=== PATIENT | female | born 1990 | race African-American/Black ===

== ENCOUNTER 2017-04-16 20:28 | Outpatient (CLI) | payer OTHER ==
--- NOTE | 2017-04-16 22:06 | IPNPDOC ---
Text Note Date of Service The patient was seen on 04/16/17. NOTE Nash Ryan is a 26yo with SIUP at approx 22 wk presenting to L&D with abdominal cramping for 1 day. She reports she recently moved here from [facility] , they are in their new home but still unpacking. She denies recent intercourse , trying to stay hydrated. Has been moving heavy boxes and unpacking. No LOF, no vaginal bleeding. Feels good movement. Denies pain with urination or vaginal pain/itching/abnormal discharge. PMhx: obesity Ob hx: was 37wk IOL for pre-E that resulted in arrest of dilation with section This has been uncomplicated, normal anatomy scan at 20wk Vitals wnl General: WDWN female in NAD, resting comfortably Abdomen: soft, NT, ND, gravid SSE with RN as air route controller: NEFG, cervix visually thick and closed, thick white "cottage cheese-like" discharge noted in vaginal vault, swab obtained 1 ctx on 20 minute tracing Positive doptones within normal range Labs: HAY/WP: positive budding yeast and hyphae, no trichomonas or clue cells Urine dipstick benign Assessment: Nash Ryan is a 26yo with SIUP at approx 22 wk with no evidence of PTL. Closed thick cervix on speculum exam. She has no symptoms of yeast infection, but discharge is thick/clumpy white and HAY/WP positive for budding yeast/hyphae. Given her sensation of cramping, will treat. Vitals wnl. Reassuring status. Plan: -Paper script given for clomitrazole 3 day vaginal course -Patient given card for [facility] telephone numbers to include triage nurse -Patient's currently in-processing and she will soon be eligible to receive care in our clinic. She will obtain referral from PCP at [facility] -Discussed return precautions -Encouraged increased hydration MD Ellen Bennett Katrina D MD Apr 16, 2017 22:06
== END 2017-04-16 22:00 | disposition home or self-care (01) ==
LOC: M LDO 20:28
PROVIDERS: ATTEND Obstetrics & Gynecology
DX: O26.892 Other specified pregnancy related conditions, second trimester (principal); Z3A.22 22 weeks gestation of pregnancy; R10.9 Unspecified abdominal pain; B37.3 Candidiasis of vulva and vagina

== ENCOUNTER 2017-07-30 15:03 | Outpatient (CLI) | payer OTHER ==
[2017-07-30 16:25] LABS: HEMATOCRIT 39.7 % (36.0-47.0); HEMOGLOBIN 13.9 g/dl (12.0-16.0); MEAN CORPUSCULAR HEMOGLOBIN 31.2 pg (27.0-33.0); PLATELET COUNT, AUTOMATED 141 10^3/uL (150-450); RED BLOOD COUNT 4.46 10^6/uL (4.00-5.40); RED CELL DISTRIBUTION WIDTH 13.1 % (11.5-14.5); WHITE BLOOD COUNT 9.7 10^3/uL (4.0-10.0)
[2017-07-30 16:35] LABS: TOTAL PROTEIN,RANDOM URINE 22.7 MG/DL (0.0-12.0)
[2017-07-30 16:36] LABS: ALT/SGPT 18 U/L (12-78); AST/SGOT 25 U/L (7-37); BILIRUBIN,TOTAL 0.4 MG/DL (0.2-1.0); CREATININE FOR GFR 0.73 MG/DL (0.55-1.30); GLOMERULAR FILTRATION RATE > 60.0 (>60); LDH LACTATE DEHYDROGENASE 233 U/L (84-246); URIC ACID 6.3 MG/DL (2.6-6.0)
== END 2017-07-30 17:47 | disposition home or self-care (01) ==
LOC: M LDO 15:03
DX: O13.3 Gestational [pregnancy-induced] hypertension without significant proteinuria, third trimester (principal); Z3A.37 37 weeks gestation of pregnancy
CPT/HCPCS: 59025

== ENCOUNTER 2017-08-04 09:46 | Outpatient (CLI) | payer OTHER ==
[2017-08-04 10:49] LABS: HEMOGLOBIN 13.4 g/dl (12.0-16.0); MEAN CORPUSCULAR HEMOGLOBIN 31.3 pg (27.0-33.0); MEAN CORPUSCULAR HGB CONC 35.3 g/dl (32.0-36.5); MEAN CORPUSCULAR VOLUME 88.8 fl (80.0-96.0); PLATELET COUNT, AUTOMATED 125 10^3/uL (150-450); RED BLOOD COUNT 4.28 10^6/uL (4.00-5.40); RED CELL DISTRIBUTION WIDTH 13.2 % (11.5-14.5); WHITE BLOOD COUNT 7.6 10^3/uL (4.0-10.0)
[2017-08-04 11:29] LABS: ALBUMIN 2.8 GM/DL (3.2-5.2); ALBUMIN/GLOBULIN RATIO 0.82 (1.00-1.93); ALKALINE PHOSPHATASE 164 U/L (45-117); ALT/SGPT 15 U/L (12-78); ANION GAP 11 MEQ/L (8-16); AST/SGOT 21 U/L (7-37); BILIRUBIN,TOTAL 0.4 MG/DL (0.2-1.0); BLOOD UREA NITROGEN 9 MG/DL (7-18); CALCIUM LEVEL 8.5 MG/DL (8.5-10.1); CARBON DIOXIDE LEVEL 23 MEQ/L (21-32); CHLORIDE LEVEL 107 MEQ/L (98-107); CREATININE FOR GFR 0.78 MG/DL (0.55-1.30); GLOMERULAR FILTRATION RATE > 60.0 (>60); GLUCOSE, FASTING 73 MG/DL (70-100); SODIUM LEVEL 141 MEQ/L (136-145); TOTAL PROTEIN 6.2 GM/DL (6.4-8.2); URIC ACID 6.7 MG/DL (2.6-6.0)
[2017-08-04] MEDS ORDERED: ACETAMINOPHEN 325 MG TAB PO (12:30)
[2017-08-04] MEDS: ACETAMINOPHEN TAB 650MG DOSE (2X325MG) PO (12:55)
== END 2017-08-04 16:52 | disposition home or self-care (01) ==
LOC: M LDO 09:46
DX: O26.893 Other specified pregnancy related conditions, third trimester (principal); Z3A.38 38 weeks gestation of pregnancy; O13.3 Gestational [pregnancy-induced] hypertension without significant proteinuria, third trimester; Z91.018 Allergy to other foods
CPT/HCPCS: 59025

== ENCOUNTER 2017-08-06 18:04 | Inpatient (IN) | payer OTHER ==
[2017-08-06] MEDS ORDERED: LR 1,000 ML IV (19:05)
[2017-08-06] MEDS: LACTATED RINGER'S 1000 ML IV (19:39)
[2017-08-06 19:52] LABS: HEMATOCRIT 40.7 % (36.0-47.0); HEMOGLOBIN 14.2 g/dl (12.0-16.0); MEAN CORPUSCULAR HEMOGLOBIN 30.8 pg (27.0-33.0); MEAN CORPUSCULAR HGB CONC 34.9 g/dl (32.0-36.5); MEAN CORPUSCULAR VOLUME 88.3 fl (80.0-96.0); PLATELET COUNT, AUTOMATED 134 10^3/uL (150-450); RED BLOOD COUNT 4.61 10^6/uL (4.00-5.40); RED CELL DISTRIBUTION WIDTH 13.1 % (11.5-14.5); WHITE BLOOD COUNT 11.6 10^3/uL (4.0-10.0)
[2017-08-06 20:14] LABS: TOTAL PROTEIN,RANDOM URINE 39.4 MG/DL (0.0-12.0)
[2017-08-06 20:15] LABS: ALT/SGPT 17 U/L (12-78); AST/SGOT 35 U/L (7-37); BILIRUBIN,TOTAL 0.4 MG/DL (0.2-1.0); CREATININE FOR GFR 0.75 MG/DL (0.55-1.30); GLOMERULAR FILTRATION RATE > 60.0 (>60); LDH LACTATE DEHYDROGENASE 371 U/L (84-246); URIC ACID 7.2 MG/DL (2.6-6.0)
[2017-08-06] MEDS ORDERED: dexameTHASONE 4 MG/ML 1ML VIAL (J1100) As Ordered (20:39)
[2017-08-06] MEDS ORDERED: ONDANSETRON 4MG/2ML VIAL (J2405) As Ordered (20:39)
[2017-08-06] MEDS ORDERED: fentaNYL 100 MCG/2 ML INJECTION (J3010) As Ordered (20:39)
[2017-08-06] MEDS ORDERED: KETOROLAC 60 MG/2 ML VIAL (J1885) As Ordered (20:39)
[2017-08-06] MEDS ORDERED: OXYTOCIN INJ 10 UNITS/ML VIAL (J2590) As Ordered (20:39)
[2017-08-06] MEDS ORDERED: MORPHINE PRES-FREE INJ 10 MG/10 ML VIAL (J2274) As Ordered (20:39)
[2017-08-06] MEDS ORDERED: METOCLOPRAMIDE INJ 10MG/2ML VIAL (J2765) As Ordered (20:45)
[2017-08-06] MEDS: LR 1,000 ML IV ×3 (20:55→23:45)
[2017-08-06] MEDS: BICITRA 30ML SOLN UDC PO (21:50)
[2017-08-06 23:09] LABS: CORD GAS ABE V -11.7; CORD GAS O2 SAT V 45.5 %; CORD GAS PCO2 V 63.2 mmHg; CORD GAS PH V 7.095 UNITS; CORD GAS PO2 V 25.7 mmHg; CORD GAS SBC V 14.4 MEQ/L; CORD GAS TCO2 V 20.9 MEQ/L
[2017-08-06] MEDS ORDERED: PERCOCET 5MG/325MG TAB PO ×2 (23:45)
[2017-08-06] MEDS ORDERED: NALBUPHINE HCL 10 MG/ML AMP (J2300) IV (23:45)
[2017-08-06] MEDS ORDERED: MEPERIDINE INJ 25 MG/ML VIAL (J2175) IV (23:45)
[2017-08-06] MEDS ORDERED: fentaNYL 100 MCG/2 ML INJECTION (J3010) IV (23:45)
[2017-08-06] MEDS ORDERED: HYDROmorphone HCL 1 MG/ML SYRINGE (J1170) IV (23:45)
[2017-08-06] MEDS ORDERED: ONDANSETRON 4MG/2ML VIAL (J2405) IV ×2 (23:45)
[2017-08-06] MEDS ORDERED: MEASLES,MUMPS,RUBELLA VACCINE INJ (MMR-II) (90707) SC (23:45)
[2017-08-06] MEDS ORDERED: METOCLOPRAMIDE INJ 10MG/2ML VIAL (J2765) IV (23:45)
[2017-08-07] MEDS: METOCLOPRAMIDE INJ 10MG/2ML VIAL (J2765) IV (02:34)
[2017-08-07] MEDS ORDERED: KETOROLAC 30 MG/ML VIAL (J1885) IV (03:00)
[2017-08-07] MEDS: KETOROLAC 30 MG/ML VIAL (J1885) IV ×4 (04:12→21:24)
[2017-08-07 07:07] LABS: HEMATOCRIT 35.4 % (36.0-47.0); HEMOGLOBIN 12.4 g/dl (12.0-16.0); MEAN CORPUSCULAR HEMOGLOBIN 30.9 pg (27.0-33.0); MEAN CORPUSCULAR VOLUME 88.3 fl (80.0-96.0); PLATELET COUNT, AUTOMATED 143 10^3/uL (150-450); RED BLOOD COUNT 4.01 10^6/uL (4.00-5.40); WHITE BLOOD COUNT 21.5 10^3/uL (4.0-10.0)
[2017-08-07] MEDS: DOCUSATE SODIUM 100 MG CAP PO ×2 (09:08→21:24)
[2017-08-07] MEDS: PRENATAL VITAMINS CHEWABLE TABLET PO (09:08)
[2017-08-07 12:55] LABS: FETAL SCREEN PROF. 1 1
[2017-08-07] MEDS: RHOGAM 300 MCG (1500 IU) INJ (J2790) IM (13:12)
[2017-08-07] MEDS: LR 1,000 ML IV (14:09)
[2017-08-07] MEDS: LABETALOL 200 MG TAB PO (22:56)
[2017-08-07] MEDS: PERCOCET 5MG/325MG TAB PO (23:26)
[2017-08-08] MEDS: IBUPROFEN 800 MG TAB PO (05:58)
[2017-08-08] MEDS: PERCOCET 5MG/325MG TAB PO (05:58)
[2017-08-08] MEDS: LABETALOL 200 MG TAB PO (08:39)
[2017-08-08] MEDS: DOCUSATE SODIUM 100 MG CAP PO (08:39)
[2017-08-08] MEDS: PRENATAL VITAMINS CHEWABLE TABLET PO (08:39)
[2017-08-08] MEDS: INFLUENZA QUADRIVALENT PF VACCINE 0.5ML SYRINGE (90686) IM (08:40)
== END 2017-08-08 09:10 | disposition home or self-care (01) | DRG 766 ==
LOC: M LDO 18:04 → M OBS 08-07 00:45 → M LDI 19:38
PROVIDERS: Pediatrics
PROC: 10D00Z1 Extraction of Products of Conception, Low, Open Approach (ICD-10-PCS; principal; 2017-08-06 21:53)
PROC: 30233S1 Transfusion of Nonautologous Globulin into Peripheral Vein, Percutaneous Approach (ICD-10-PCS; 2017-08-06 21:53)
DX: O13.4 Gestational [pregnancy-induced] hypertension without significant proteinuria, complicating childbirth (principal); Z37.0 Single live birth; Z3A.38 38 weeks gestation of pregnancy; O34.211 Maternal care for low transverse scar from previous cesarean delivery; Z91.018 Allergy to other foods; O77.0 Labor and delivery complicated by meconium in amniotic fluid

== ENCOUNTER 2020-09-24 08:37 | Emergency (ER) | payer OTHER ==
[~2020-09-24] VITALS: Ht 152.4 cm; Wt 78.2 kg
[~2020-09-24 08:37] MED LIST: COLA100C5 PO; LABE200T32 PO; OXYC1TAB23 PO; PRENTAB9 PO
[2020-09-24] MEDS ORDERED: PRENTAB53 PO (08:46)
[2020-09-24 09:23] LABS: HEMATOCRIT 41.4 % (36.0-47.0); MEAN CORPUSCULAR HEMOGLOBIN 29.3 pg (27.0-33.0); MEAN CORPUSCULAR HGB CONC 33.8 g/dl (32.0-36.5); MEAN CORPUSCULAR VOLUME 86.6 fl (80.0-96.0); PLATELET COUNT, AUTOMATED 246 10^3/uL (150-450); RED BLOOD COUNT 4.78 10^6/uL (4.00-5.40); WHITE BLOOD COUNT 5.5 10^3/uL (4.0-10.0)
[2020-09-24 10:28] VITALS: BP 139/72
== END 2020-09-24 10:32 | disposition home or self-care (01) ==
LOC: M ED 08:37
DX: O20.0 Threatened abortion (principal); Z3A.01 Less than 8 weeks gestation of pregnancy; Z79.899 Other long term (current) drug therapy